=== PATIENT | female | born 1995 | race Caucasian/White ===

== ENCOUNTER 2021-07-31 18:22 | Emergency (ER) | payer OTHER, MEDICAID, SELFPAY ==
[2021-07-31 18:46] VITALS: BP 134/69; PULSE 79; RESP 18; TEMP 36.8; O2SAT 100; BMI 20.2
--- NOTE | 2021-07-31 19:05 | DI.US.S_ITS ---
PROCEDURE: US PELVIC COMPLETE INDICATIONS: LEFT PELVIC PAIN TECHNIQUE: Real-time scanning was performed of the pelvic organs, with image documentation. Additional endovaginal scanning was necessary due to incomplete visualization of the adnexal and endometrial structures by transabdominal scanning. COMPARISON: CT, CT-IVP, 09/01/2010, 9:59. FINDINGS: Uterus: Uterus is anteverted and measures 9.3 x 4.0 x 5.6 cm. The endometrium measures up to 0.3 cm in combined thickness. There is an IUD which appears in appropriate position, extending into the fundal endometrium. Ovaries: The left ovary measures 2.9 x 1.9 x 3.7 cm and the right ovary measures 3.4 x 1.6 x 1.7 cm, there is patent arterial flow demonstrated within the ovaries. There is a left ovarian isoechoic oval mass measuring 2.9 x 1.9 x 2.3 cm. This demonstrates internal vascularity on Doppler interrogation. Other: No pathologic free abdominal or pelvic fluid. IMPRESSION: 1. Small solid appearing left ovarian mass is nonspecific. The differential includes an endometrioma or ovarian neoplasm. Further evaluation may be obtained with a pelvic MRI if clinically indicated We strive to produce accurate, complete, and clear reports of imaging services. To assist us in improving patient care, this report was composed using standard report templates and voice recognition software. Therefore, it may contain abnormal punctuation, insertions and/or omissions. Occasional wrong-word or sound-alike substitutions may occur. Though we review the report and make efforts to correct it, we do recommend that the report be read carefully in proper context to recognize any text inaccuracies. Dictated by: David Buckley M.D. on 07/31/2021 at 20:39 Approved by: David Buckley M.D. on 07/31/2021 at 20:55
--- NOTE | 2021-07-31 21:30 | ED.ABDPAIN ---
HPI - Abdominal Pain General Chief Complaint: Abdominal Pain Stated Complaint: LLQ abd pain Time Seen by Provider: 07/31/21 21:16 Source: patient Mode of arrival: Ambulatory History of Present Illness HPI narrative: The patient presents with left lower quadrant abdominal pain. She has a history of ovarian cyst. The pains is suggestive of ovarian cyst. She has an IUD in place. She had bleeding about 1 month ago that lasted for 2 days. Overall, menstrual cycles are regular. The pain is sharp and stabbing. She has no back pain, no dysuria or hematuria. She does have a history of hernias, there is no bulging mass. She has no nausea, vomiting, diarrhea or constipation. She has no vaginal discharge. She has no fever or chills. Related Data Allergies Allergy/AdvReac Type Severity Reaction Status Date / Time Penicillins Allergy Intermediate Hives Verified 07/31/21 18:49 Review of Systems Review of Systems Narrative: See HPI. Patient History Medical History (Updated 08/01/21 @ 09:20 by David Hayes MD) Ovarian cyst Social History Smoking Status: Current every day smoker Smoking Status: Current every day smoker alcohol intake frequency: holidays/special occasions only Substance Use Type: marijuana Exam Initial Vital Signs Initial Vital Signs: Vital Signs Temperature 98.2 F 07/31/21 18:46 Pulse Rate 79 07/31/21 18:46 Respiratory Rate 18 07/31/21 18:46 Blood Pressure 134/69 07/31/21 18:46 Pulse Oximetry 100 07/31/21 18:46 Const General: cooperative, healthy appearing, comfortable, well developed and well groomed Resp Effort & Inspection: normal respiratory effort Auscultation: clear to auscultation bilaterally Cardio Rate: regular rate Rhythm: regular rhythm Heart Sounds: S1 normal and S2 normal GI Other: L LQ tenderness without masses, distention or guarding. Normal bowel sounds. No peritoneal signs. No suprapubic tenderness. No RLQ tenderness. Back/Spine/Pelvis Back: No CVA tenderness Course Course Course Narrative: Ultrasounds the results were discussed with the patient. There is no significant cyst, but there is a structure on the left ovary that is worse follow-up. Her pain is not that severe on evaluation. She feels ibuprofen would be appropriate. Her primary care provider is in [place], [place]. She felt she should be able to start there to obtain a Gynecology consult. Orders Ordered: Discontinued Medications Ibuprofen (Ibuprofen 400 Mg Tablet) 400 mg PO NOW ONE Stop: 07/31/21 21:17 Last Admin: 07/31/21 21:31 Dose: 400 mg Documented by: ANTHONY Vital Signs Vital signs: Vital Signs - 8 hr 07/31/21 18:46 Temperature 98.2 F Pulse Rate 79 Respiratory Rate 18 Blood Pressure 134/69 Pulse Oximetry 100 MDM - Abdominal Pain Lab Data Point of care testing: Point of Care Testing Test Results Negative Urine Dip Bedside Urine Glucose Negative Bedside Urine Bilirubin - Negative Bedside Urine Ketone - Negative Urine Specific [place] 1.020 Bedside Urine Occult Blood - Negative Bedside Urine pH 6.0 Bedside Urine Protein - Negative Bedside Urine Urobilinogen - Negative Bedside Urine Nitrite - Negative Bedside Urine Leukocytes - Negative Esterase Imaging Data Pelvic ultrasound: Radiologist's Impression: ?Small solid appearing left ovarian mass is nonspecific.? The differential includes an endometrioma or ovarian neoplasm. Discharge Plan Departure Patient Disposition: Home Clinical Impression: Mass of left ovary Instructions: DI for Pelvic Pain Activity Restrictions/Additional Instructions: Advil 2 tablets every 6 hours as needed for pain. Follow-up with your provider could feel, I would suggest a gynecology appointment. I will give you contact information for our on-call soldering machine tender if you have difficulty with a consult through your primary care provider. Referrals: Paz Carranza MD [Physician] -
[2021-07-31] MEDS: IBUPROFEN 400 MG TABLET PO (21:31)
== END 2021-07-31 21:45 | disposition home or self-care (01) ==
PROVIDERS: Emergency Provider Emergency Medicine; Family Provider Physician Assistant Medical
DX: N83.202 Unspecified ovarian cyst, left side (principal)
CPT/HCPCS: 76830; 76856; 81003; 81025; 99283; 99284